=== PATIENT | female | born 2000 | race Two or more races ===

== ENCOUNTER 2022-10-04 11:42 | Emergency (ER) | payer SELFPAY ==
[~2022-10-04] VITALS: Ht 152.4 cm; Wt 50.0 kg
[2022-10-04 11:46] VITALS: BP 114/62
== END 2022-10-04 11:50 | disposition left against medical advice (07) ==
LOC: ER 11:42
DX: Z53.21 Procedure and treatment not carried out due to patient leaving prior to being seen by health care provider (principal)